=== PATIENT | male | born 1975 | race Caucasian/White ===

== ENCOUNTER 2018-10-13 10:02 | Observation (INO) ==
[2018-10-13] MEDS ORDERED: HumuLIN R SUBCUT PRN (12:47)
[2018-10-13] MEDS ORDERED: PHENERGAN INJ 25 MG IM PRN (12:47)
[2018-10-13] MEDS ORDERED: DEMEROL INJ IVP PRN (12:47)
[2018-10-13] MEDS ORDERED: NS 1000 ML 1,000 ML ONE (12:51)
[2018-10-13] MEDS: NS 1000 ML 1,000 ML IV SCH (13:11)
[2018-10-13 13:31] LABS: BASOPHILS # (AUTO) 0.1 X10^3/uL (0.0-0.1); BASOPHILS % (AUTO) 0.6 % (0.2-1.0); EOSINOPHILS # (AUTO) 0.2 x10^3/uL (0.0-0.2); EOSINOPHILS % (AUTO) 2.4 % (0.9-2.9); HEMATOCRIT 43.3 % (42.0-54.0); HEMOGLOBIN 15.1 g/dL (13.5-18.0); LYMPHOCYTES # (AUTO) 2.7 X10^3/uL (1.3-2.9); MEAN CORPUSCULAR HEMOGLOBIN 29.7 pg (27.0-34.0); MEAN CORPUSCULAR HGB CONC 34.9 g/dL (33.0-35.0); MEAN CORPUSCULAR VOLUME 85.2 fL (80.0-100.0); MEAN PLATELET VOLUME 7.4 fL (7.4-11.0); MONOCYTES # (AUTO) 0.8 x10^3/uL (0.3-0.8); MONOCYTES % (AUTO) 8.4 % (0.0-13.0); NEUTROPHILS # (AUTO) 5.8 x10^3/uL (2.2-4.8); NEUTROPHILS % (AUTO) 60.6 % (42.0-75.0); PLATELET COUNT 236 X10^3/uL (150.0-450.0); RED BLOOD COUNT 5.08 X10^6/uL (4.7-6.0); RED CELL DISTRIBUTION WIDTH 13.1 % (11.6-16.5); WHITE BLOOD COUNT 9.5 X10^3/uL (3.6-10.0)
[2018-10-13 13:35] LABS: ALANINE AMINOTRANSFERASE 61 Units/L (12-78); ALBUMIN 3.6 g/dL (3.4-5.0); ALKALINE PHOSPHATASE 82 Units/L (46-116); ASPARTATE AMINO TRANSFERASE 29 Units/L (15-37); BLOOD UREA NITROGEN 12 mg/dL (7-18); CALCIUM 8.7 mg/dL (8.5-10.1); CARBON DIOXIDE 28.8 mmol/L (21-32); CHLORIDE 107 mmol/L (98-107); CREATININE 1.05 mg/dL (0.70-1.30); SODIUM 142 mmol/L (136-145); TOTAL PROTEIN 6.9 g/dL (6.4-8.2); eGFR NON BLACK RACES > 60 (>60)
[2018-10-13] MEDS: PEPCID 20 MG IV PREMIX* 20 MG/50 ML BAG IV SCH ×2 (13:39→21:31)
[2018-10-13] MEDS: PROTONIX INJ 40 MG VIAL IVP SCH ×2 (13:39→21:32)
[2018-10-13] MEDS ORDERED: KLOR-CON PO PRN (13:53)
[2018-10-13] MEDS ORDERED: MICRO K EXTEN CAP 10 MEQ PO PRN (13:53)
[2018-10-13] MEDS ORDERED: K-RIDER 10 MEQ/NS 100 ML 10 MEQ/100 ML BAG IV PRN (13:53)
[2018-10-13] MEDS ORDERED: POTASSIUM CHL 40 MEQ/NS 0.45% 500 ML IV PRN (13:53)
[2018-10-13] MEDS ORDERED: POTASSIUM CHLORIDE LIQ 20 MEQ UDC PO PRN (13:53)
[2018-10-13] MEDS ORDERED: POTASSIUM CHL 60 MEQ/NS 0.45% 500 ML IV PRN (13:53)
[2018-10-13 13:59] LABS: ERYTHROCYTE SEDIMENTATION RATE 8 MM/HOUR (0-15)
[2018-10-13 14:20] VITALS: BMI 33.0
[2018-10-13] MEDS: K-DUR TAB 20 MEQ PO PRN (14:37)
[2018-10-13] MEDS ORDERED: NS 100 ML IV 100 ML ONE (16:47)
--- NOTE | 2018-10-13 17:06 | DR.CONSULT ---
Consult - Consultation for Day of: Date: 10/13/18 - Chief Complaint Chief Complaint: Patient referred for hematochezia. Patient with complaints of hematochezia, diarrhea and rectal pain. - History of Present Illness History of Present Illness: Patient is a 43yo male who was referred for hematochezia. Patient with complaints of hematochezia that started yesterday am, diarrhea for 1 week and rectal pain. States that when he is having the rectal pain that it hurst in his left testicle as well. Patient denies dysphagia, dyspepsia, abdominal pain, constipation and melena. Patient states he has never had a colon or EGD. Hgb 15.1, Hct 43.3, Plt 236, BUN 12, Creatinine 1.05, T. Bili 0.4, AST 29, ALT 61, Alk Phos 82, CRP 4.9 - Past Medical History Past Medical History: Dyslipidemia, Hypertension - Past Surgical History Surgical History: Cholecystectomy - Social History Does patient currently use any type of tobacco product: Yes (dips) Have you used tobacco products in the last 12 months: Yes Type of Tobacco Use: dips Does any household member use tobacco: No Alcohol Use: Occasionally Drug Use: None - Medications Home Medications: dexamethasone [From Decadron] Adverse Reaction (Verified 10/13/18 13:17) ibuprofen Adverse Reaction (Verified 10/13/18 12:54) CONTINUE taking the following medications fenofibrate nanocrystallized 145 mg PO DAILY 10/13/18 [History] losartan-hydrochlorothiazide 1 tab PO DAILY 10/13/18 [History] omeprazole 40 mg PO DAILY 10/13/18 [History] sertraline 100 mg PO DAILY 10/13/18 [History] - Review of Systems Constitutional: No Symptoms Reported Eyes: No Symptoms Reported ENT: No Symptoms Reported Respiratory: No Symptoms Reported Cardiovascular: No Symptoms Reported Gastrointestinal: Diarrhea, Hematochezia, Other (rectal pain). denies: Nausea, Vomiting, Abdominal Pain, Constipation, Melena Genitourinary: No Symptoms Reported Musculoskeletal: No Symptoms Reported Skin: No Symptoms Reported Neurological: No Symptoms Reported - Physical Exam Vital Signs: Temperature 98.0 F Pulse Rate [Left Brachial] 53 Respiratory Rate 18 Blood Pressure [Left Arm] 151/80 O2 Sat by Pulse Oximetry 97 Oriented: Normal, Time, Person, Place Eyes: Normal Ear: Normal Nose: Normal Throat: Normal Respiratory: Clear Throughout Cardiovascular: Normal Auscultation: Bowel Sounds: Normal Palpation: Normal, Other (No distention). negative: Spleen Enlarged, Liver Enlarged, Mass Pulsatile Tenderness: Normal (non tender) Skin: Normal Musculoskeletal: Normal Psychiatric: Normal Mood Description: Calm Affect: Normal Speech Pattern: Clear, Appropriate - Plan Plan: Assessment. 1. Hematochezia r/o diverticular bleed. 2. Diarrhea r/o infectious etiology. Plan. 1. Monitor Hgb, Transfuse as needed, Colon on . 2. Stool Studies. Plan reviewed with Dr. Chin - Allergies Allergies/Adverse Reactions: Allergies Allergy/AdvReac Type Severity Reaction Status Date / Time dexamethasone [From Decadron] AdvReac Verified 10/13/18 13:17 ibuprofen AdvReac Verified 10/13/18 12:54
[2018-10-13 19:45] LABS: CRYPTOSPORIDIUM PARVUM ANTIGEN NEGATIVE (NEGATIVE); GIARDIA LAMBLIA ANTIGEN NEGATIVE (NEGATIVE)
[2018-10-13] MEDS ORDERED: SNACK - Diabetic Appropriate PO SCH (20:00)
--- NOTE | 2018-10-13 22:06 | CT ---
CT abdomen and pelvis with contrast Indication: Lower abdominal pain, rectal bleeding Comparison: None Technique: CT images of the abdomen and pelvis were obtained with IV and oral contrast. Automatic exposure control was utilized. Findings: No acute osseous abnormality. The lung bases are clear. The liver is diffusely fatty, without focal lesion. Previous cholecystectomy is noted. The spleen, stomach, duodenum, pancreas, adrenals, and kidneys are unremarkable. No thickening or dilatation of the lower GI tract is observed. Normal appendix is noted. The urinary bladder, prostate, and rectum are unremarkable. No free fluid or adenopathy. Impression: No source to explain patient's symptoms. Fatty liver. Reported By:
[2018-10-14] MEDS: NS 1000 ML 1,000 ML IV SCH ×2 (00:34→05:33)
[2018-10-14 05:26] LABS: BASOPHILS % (AUTO) 0.4 % (0.2-1.0); EOSINOPHILS # (AUTO) 0.3 x10^3/uL (0.0-0.2); HEMOGLOBIN 14.7 g/dL (13.5-18.0); LYMPHOCYTES # (AUTO) 3.1 X10^3/uL (1.3-2.9); LYMPHOCYTES % (AUTO) 29.6 % (21.0-51.0); MEAN CORPUSCULAR HEMOGLOBIN 30.7 pg (27.0-34.0); MEAN CORPUSCULAR HGB CONC 35.7 g/dL (33.0-35.0); MEAN CORPUSCULAR VOLUME 85.8 fL (80.0-100.0); MEAN PLATELET VOLUME 7.6 fL (7.4-11.0); MONOCYTES # (AUTO) 0.8 x10^3/uL (0.3-0.8); MONOCYTES % (AUTO) 7.6 % (0.0-13.0); NEUTROPHILS # (AUTO) 6.2 x10^3/uL (2.2-4.8); NEUTROPHILS % (AUTO) 59.4 % (42.0-75.0); PLATELET COUNT 210 X10^3/uL (150.0-450.0); RED BLOOD COUNT 4.78 X10^6/uL (4.7-6.0); RED CELL DISTRIBUTION WIDTH 13.3 % (11.6-16.5); WHITE BLOOD COUNT 10.4 X10^3/uL (3.6-10.0)
[2018-10-14 05:39] LABS: ALANINE AMINOTRANSFERASE 59 Units/L (12-78); ALBUMIN 3.2 g/dL (3.4-5.0); ALKALINE PHOSPHATASE 65 Units/L (46-116); ASPARTATE AMINO TRANSFERASE 34 Units/L (15-37); BLOOD UREA NITROGEN 10 mg/dL (7-18); CALCIUM 8.1 mg/dL (8.5-10.1); CARBON DIOXIDE 27.9 mmol/L (21-32); CHLORIDE 107 mmol/L (98-107); COR CA(FOR HYPOALB) 8.7 mg/dL (8.5-10.1); CREATININE 1.08 mg/dL (0.70-1.30); SODIUM 143 mmol/L (136-145); eGFR NON BLACK RACES > 60 (>60)
[2018-10-14] MEDS: PEPCID 20 MG IV PREMIX* 20 MG/50 ML BAG IV SCH (08:40)
[2018-10-14] MEDS: PROTONIX INJ 40 MG VIAL IVP SCH (08:40)
[2018-10-14] MEDS: K-DUR TAB 20 MEQ PO PRN (08:46)
[2018-10-14 09:31] VITALS: BP 126/57
[2018-10-14] MEDS ORDERED: MIRALAX POWDER (255 GRAMS BTL) PO ONE (14:00)
[2018-10-14] MEDS ORDERED: DULCOLAX TAB EC 5 MG PO ONE ×2 (15:00→21:00)
--- NOTE | 2018-10-27 11:46 | DR.CARTERS ---
Short Stay Summary - Admission Date Date of Admission: 10/13/18 - Discharge Date Discharge Date: 10/14/18 - Admission Diagnoses (1) Rectal bleeding Status: Acute - Hospital Course Hospital Course: IS A 43 YEAR OLD PATIENT OF [facility] WHO WAS ADMITTED TO THE HOSPITAL A DIRECT ADMISSION FOR COMPLAINTS OF RECTAL BLEEDING. HE HAS A HISTORY OF HEMORRHOIDS. PATIENT REPORTED, It was so bad that I would bleed through my clothes. I was going to the bathroom about every 30 minutes and had to change my clothes several times due to the bleeding." HE ALSO REPORTED DIARRH EA X 1 WEEK. ON ADMISSION, VITALS WERE 98.1-53-20-97%-146/86. LABS WERE OBTAINED ON ADMISSION. ABNORMAL LAB VALUES INCLUDE THE FOLLOWING: GLUCOSE 100, CRP 4.90. STOOLS STUDIES WERE OBTAINED AND WERE NEGATIVE FOR OCCULT BLOOD. AN ABDOMEN/PELVIS CT WAS OBTAINED AND REVEALED: NO SOURCE TO EXPLAIN PATIENTS SYMPTOMS. FATTY LIVER. HE WAS STARTED ON NORMAL SALINE AT 80ML/HR, PEPCID IV, PROTONIX IV, DEMEROL 25MG IV Q6H PRN PAIN, AND PHENERGAN 25MG IM Q6H PRN NAUSEA. WE CONSULTED . HE RECOMMENDED A COLOSOCOPY IF PATIENT REMAINED IN THE HOSPITAL ON FRIDAY. ON THE MORNING FOLLOWING ADMISSION, PATIENT IS ALERT AND ORIENTED, LYING IN BED ON MORNING ROUNDS. HE DENIES RECTAL BLEEDING OR PAIN THIS MORNING. ON EXAMINATION, HEART REGULAR IN RATE AND RHYTHM. BILATERAL LUNGS CLEAR TO AUSCULTATION. ABDOMEN ROUND, SOFT, AND NON-TENDER. NORMAL BOWEL SOUNDS NOTED IN ALL QUADRANTS. HIS VITALS THIS MORNING WERE 97.7-56-20-97%-126/57. LABS WERE OBTAINED. ABNORMAL LAB VALUES INCLUDE THE FOLLOWING: WBC 10.4, HCT 41.0, POTASSIUM 3.4, CALCIUM 8.1, TOTAL PROTEIN 6.0, ALBUMIN 3.2. WE PLANNED FOR DISCHARGE. WE WILL HAVE PATIENT FOLLOW UP WITH FOR AN OUTPATIENT COLONOSCOPY. DISCHARGE MEDICATIONS AND INSTRUCTIONS WERE DISCUSSED WITH PATIENT AND FAMILY. THEY VERBALIZED UNDERSTANDING. HE WAS DISCHARGED HOME ON PEPCID 40MG PO BID, PROTONIX 40MG PO BID, HYCOSAMINE 15ML PO TID PRN, AND ANUSOL SUPP OSITORIES 25MG CT BID. HE WAS DISCHARGED HOME WITH FAMILY IN STABLE CONDITION. - Discharge Medications Discharge Medications: Home Medication List fenofibrate nanocrystallized 145 mg PO DAILY 10/13/18 [History] losartan-hydrochlorothiazide 1 tab PO DAILY 10/13/18 [History] sertraline 100 mg PO DAILY 10/13/18 [History] famotidine [Pepcid] 40 mg PO BID #60 tab 10/14/18 [Rx] hydrocortisone acetate [Anusol-HC] [address] BID #28 ea 10/14/18 [Rx] hyoscyamine sulfate 15 ml PO TID PRN #90 ml 10/14/18 [Rx] pantoprazole 40 mg PO BID #60 tab 10/14/18 [Rx] Prescriptions: famotidine [Pepcid] Narendra Jimenez hydrocortisone acetate [Anusol-HC] Narendra Jimenez hyoscyamine sulfate Narendra Jimenez pantoprazole Narendra Jimenez - Discharge Plan Disposition: 01 HOME, SELF-CARE Condition: Stable Prescriptions: famotidine [Pepcid] 40 mg PO BID #60 tab hydrocortisone acetate [Anusol-HC] [address] BID #28 ea hyoscyamine sulfate 15 ml PO TID PRN #90 ml PRN Reason: pantoprazole 40 mg PO BID #60 tab - Follow up/Referrals Follow up/Referrals: Benita De La O [Nurse Practitioner] - 11/04/18 2:40 pm VEN[facility]ATES[facility] CHRISTIAN [Primary Care Provider] - 10/21/18 10:00 am - Instructions Instructions: Colonoscopy, Adult, [id number], How to Take a Sitz Bath, Hemorrhoids, [id number], Hypertension, [id number], Nonsurgical Procedures for Hemorrhoids, Rectal Bleeding, [id number] Additional Instructions: DIET TOLERATED. ACTIVITY TOLERATED. FOLLOW-UP WITH TO SET UP OUTPATIENT COLONOSCOPY. Forms: Patient Portal
== END 2018-10-14 11:45 | disposition home or self-care (01) ==
LOC: MED/SURG
PROVIDERS: ADMIT Internal Medicine; ATTEND Internal Medicine
DX: K62.5 Hemorrhage of anus and rectum; R79.82 Elevated C-reactive protein (CRP); I10 Essential (primary) hypertension; Z79.899 Other long term (current) drug therapy; R19.7 Diarrhea, unspecified; N50.82 Scrotal pain; R10.32 Left lower quadrant pain; E78.2 Mixed hyperlipidemia
CPT/HCPCS: 36415; 74177; 80053; 82270; 83735; 85025; 85652; 86140; 87045; 87328; 87329; 87427; 87449; 87493; 87899; 96367; 96374; A4216; A4222; C9113; S0028; G0378; J2175; J2550; J7030; J7050